=== PATIENT | male | born 1980 | race Caucasian/White ===

== ENCOUNTER → 2021-04-19 | Outpatient (CLI) | payer OTHER ==
[~2021-04-19] MED LIST: PREDNISONE20 MG PO; ZITHROMAX Z PA250 MG PO
== END ==
LOC: LAB 20:35
DX: U07.1 COVID-19 (principal)

== ENCOUNTER 2021-04-21 13:17 | Emergency (ER) | payer OTHER ==
[2021-04-21 14:00] LABS: BASO # 0.01 (0.02-0.10); EOS # 0.01 (0.04-0.40); EOS % 0.3 % (0.0-4.0); HEMATOCRIT 45.5 % (42.0-52.0); HEMOGLOBIN 15.5 g/dL (13.5-18.0); LYMPH# 0.75 (1.50-4.00); MEAN CELL VOLUME 84 fl (78-100); MEAN CORPUSCULAR HEMOGLOBIN 29 pg (27-31); MEAN CORPUSCULAR HGB CONC 34 g/dL (33-37); MEAN PLATELET VOLUME 9.8 fl (7.4-10.4); MONO # 0.25 (0.20-0.80); NEU # 1.98 (1.40-6.50); PLATELET COUNT 127 K/mm3 (130-400); WHITE BLOOD COUNT 3.1 K/mm3 (4.8-10.8)
[2021-04-21 14:12] LABS: POTASSIUM 3.8 mmol/L (3.5-5.1)
[2021-04-21 14:13] LABS: CALCIUM 8.6 mg/dL (8.3-10.5)
[2021-04-21 14:15] LABS: TOTAL PROTEIN 7.1 g/dL (6.4-8.3)
[2021-04-21 14:16] LABS: TOTAL BILIRUBIN 0.6 mg/dL (0.2-1.2)
[2021-04-21] MEDS ORDERED: ZITHROMAX Z PA250 MG PO (14:57)
[2021-04-21] MEDS ORDERED: PREDNISONE20 MG PO (14:57)
[2021-04-21 15:12] VITALS: BP 156/89
== END 2021-04-21 15:08 | disposition home or self-care (01) ==
LOC: ED 13:17
PROVIDERS: Nurse Practitioner
DX: U07.1 COVID-19 (principal); J12.82 Pneumonia due to coronavirus disease 2019
CPT/HCPCS: J1100; J2405; J7030